=== PATIENT | male | born 1990 | race Two or more races ===

== ENCOUNTER 2018-02-23 07:20 | Emergency (ER) | payer OTHER ==
[~2018-02-23] VITALS: Ht 172.7 cm; Wt 68.0 kg
[2018-02-23 07:20] VITALS: BP 126/71
== END 2018-02-23 08:07 | disposition home or self-care (01) ==
LOC: ER 07:26
DX: J02.0 Streptococcal pharyngitis (principal); F17.200 Nicotine dependence, unspecified, uncomplicated
CPT/HCPCS: A4606; Z7610